=== PATIENT | female | born 1990 | race Caucasian/White ===

== ENCOUNTER 2018-08-12 22:34 | Emergency (ER) | payer BC, SELFPAY ==
[2018-08-12 22:35] VITALS: BP 142/80; PULSE 78; RESP 15; TEMP 36.6; BMI 23.0
--- NOTE | 2018-08-12 23:59 | ED.VIS.GEN ---
History of Present Illness Chief Complaint: Headache Narrative: Stated this evening around 5 PM she took her kids to the park. They were playing and she developed a headache. She stated that it got worse throughout the next couple hours. It is an aching pain. It is in her neck and diffuse head. She feels it behind her eyes. It is a throbbing. Occasionally it will feel sharp. No visual difficulty but positive photophobia. She does have a history of migraines every 2 months for the last 3 years. She tried Excedrin and ibuprofen with minimal relief this evening. No nausea or vomiting. Denies any other symptoms. Current severity is moderate. She is never seen a neurologist. She takes no migraine medications. Past Medical History - Allergies and Home Meds Allergies/Adverse Reactions: Allergies No Known Allergies Allergy (Verified 08/12/18 22:38) Primary Care Physician: Jamie Alberts DO [Primary Care Provider] - Prior records reviewed: Yes Past Medical History: - - Migraine headache Surgical History: appendectomy Lives: Spouse/ Significant Other Smoking Status: Current every day smoker Alcohol: None Drugs: None Review of Systems General: Denies: Chills, Fever, Sweats Eyes: Denies: Visual changes - bilaterally, Diplopia ENT: Denies: Rhinorrhea, Sore throat Cardiovascular: Denies: Chest pain, Palpitations Respiratory: Denies: Dyspnea, Cough, Dyspnea on exertion Gastrointestinal: Denies: Abdominal pain, Nausea, Vomiting, Diarrhea, Melena, Hematochezia Genitourinary: Denies: Dysuria, Hematuria, Frequency Musculoskeletal: Denies: Back pain, Extremity Pain Skin: Denies: Rash, Wounds Neurological: Reports: Headache. Denies: Weakness, Numbness Physical Exam Vital Signs/Narrative: Vital Signs Temp Pulse Resp BP 08/12/18 22:35 97.9 F 78 15 142/80 H General: Well nourished, Well developed, No Acute Distress Head: Normocephalic, Atraumatic Eyes: Perrl, EOMI ENT: Moist mucous membranes, No rhinorrhea Neck: Supple, Nontender Cardiovascular: Regular rate, Regular rhythm, No murmurs Respiratory: No distress, CTA bilaterally, Chest nontender Abdomen: Soft, Nontender, Nondistended, Normal bowel sounds Back: Nontender, Normal Inspection Extremities: Nontender, No edema Skin: Normal color, No rash Neurological: Alert, Oriented x3, Cranial nerves II-XII grossly intact, Normal Strength, Normal Sensation Psychological: Normal affect, Normal Mood Diagnostic/Tx/Re-eval - Medical Decision Making IV established and given IV fluids, Benadryl on reevaluation 1 hour later her headache is completely resolved. I do not think she had a subarachnoid hemorrhage. I think she likely has a migraine that is resolved. I do not think she needs imaging. She will follow-up as an outpatient. Resting comfortably nontoxic. ED Disposition - Plan for ED Patient: Diagnosis: Migraine headache Instructions: ED Headache Migraine Referrals: Jamie Alberts DO [Primary Care Provider] -
[2018-08-13] MEDS: 0.9% Normal Saline 1,000 ML 999 ML IV (00:54)
[2018-08-13] MEDS: Ketorolac 30 MG/ML Syringe IV (00:54)
[2018-08-13] MEDS: DiphenhydrAMINE 50 MG/ML Syringe 25 MG IV (00:55)
[2018-08-13] MEDS: proCHLORPERazine 10 MG/2 ML Vial IV (00:56)
[2018-08-13 00:57] VITALS: BP 136/80; PULSE 84; RESP 16; O2SAT 100
[2018-08-13 01:54] VITALS: PULSE 78; RESP 16; O2SAT 98
== END 2018-08-13 01:56 | disposition home or self-care (01) ==
PROVIDERS: Emergency Provider Emergency Medicine; Family Provider Family Medicine; PCP Family Medicine
DX: G43.909 Migraine, unspecified, not intractable, without status migrainosus (principal); F17.210 Nicotine dependence, cigarettes, uncomplicated
CPT/HCPCS: 96361; 96374; 96375; 99282; J7030; A4216

== ENCOUNTER → 2019-11-25 11:39 | Outpatient (CLI) | payer SELFPAY | PROVIDERS: PCP Family Medicine; Referring Provider Family Medicine; Visit Provider Family Medicine | DX: Z11.59 Encounter for screening for other viral diseases (principal) | CPT/HCPCS: 87635; G2023; U0003 ==

== ENCOUNTER → 2022-06-14 | Outpatient (CLI) | payer OTHER, SELFPAY ==
[2022-06-16 21:07] LABS: Chlamydia By Nucleic Acid AMP Negative (Negative)
[2022-06-18 14:13] LABS: Gonococcus By Nucleic Acid AMP Negative (Negative)
[2022-06-20 10:08] LABS: HPV APTIMA, High Risk Negative (Negative)
== END | disposition home or self-care (01) ==
LOC: LABSPEC 13:24
PROVIDERS: PCP Family Medicine; Visit Provider Nurse Practitioner Women's Health
DX: Z12.4 Encounter for screening for malignant neoplasm of cervix (principal); Z11.3 Encounter for screening for infections with a predominantly sexual mode of transmission; N89.8 Other specified noninflammatory disorders of vagina
CPT/HCPCS: 87070; 87205; 87491; 87591; 87624; 88175; G0145

== ENCOUNTER → 2022-07-01 | Outpatient (CLI) | payer OTHER, SELFPAY | END | disposition home or self-care (01) | PROVIDERS: PCP Family Medicine; Visit Provider Obstetrics & Gynecology | DX: R14.0 Abdominal distension (gaseous) (principal) | CPT/HCPCS: 87070; 87205 ==

== ENCOUNTER → 2022-07-16 | Outpatient (CLI) | payer OTHER, SELFPAY ==
--- NOTE | 2022-07-16 10:16 | US_ITS ---
INDICATION: BLOATING EXAMINATION: Ultrasound US Pelvis Non OB Complete With Transvaginal Imaging TECHNIQUE: Transabdominal and transvaginal pelvic ultrasound was performed. Grayscale, spectral waveform, and color flow Doppler evaluation of the adnexa. COMPARISON: None. FINDINGS: UTERUS: Anteverted. The uterus measures 9.5 x 5.0 x 4.7 cm.. There is a normal variant nabothian cyst. This measures 0.2 x 0.4 x 0.3 cm. There is a submucosal cyst seen on the right within the body/fundus measuring 0.4 cm in diameter. The endometrial stripe measures 0.6 cm in AP diameter which is within normal limits. RIGHT OVARY: 2.4 x 1.5 x 1.3 cm. Non-enlarged, normal echogenicity. There is normal arterial inflow and venous outflow present in the right ovary. LEFT OVARY: 3.3 x 2.6 x 1.6 cm. There is a 1.7 x 1.6 x 1.3 cm simple cyst in the left ovary.. Non-enlarged, normal echogenicity. There is normal arterial inflow and venous outflow present in the left ovary. FREE FLUID: None. US/Pelvic (Non ) IMPRESSION: Submucosal cyst within the body/fundus measuring 0.4 cm in diameter. Normal variant nabothian cyst at the cervix. 1.7 x 1.6 x 1.3 cm simple cyst left ovary. Electronically Signed: Jamie Mcgee MD, ANDREA at 11:33 EST ,
== END | disposition home or self-care (01) ==
LOC: US 10:15
PROVIDERS: PCP Family Medicine; Referring Provider Obstetrics & Gynecology; Visit Provider Obstetrics & Gynecology
DX: R14.0 Abdominal distension (gaseous) (principal)
CPT/HCPCS: 76830; 76856

== ENCOUNTER → 2023-07-11 | Outpatient (CLI) | payer OTHER, SELFPAY ==
[2023-07-11 18:03] LABS: Absolute Lymphocyte Count 3.17 X10^3/uL (0.83-4.51); Absolute Neutrophil Count 3.8 X10^3/uL (2.0-7.7); Basophil# 0.03 X10^3/uL; Basophil% 0.4 % (0-1); Eosinophil# 0.16 X10^3/uL; Eosinophils% 2.2 % (0-5); Hematocrit 41.7 % (37-47); Hemoglobin 13.9 g/dL (12.0-15.0); Lymphocyte # 3.17 X10^3/ul (0.83-4.51); Lymphocyte % 43.1 % (19-41); Mean Corp Hgb Conc 33.3 g/dL (32-36); Mean Corpuscular Hgb 30.2 pg (27.0-32.0); Mean Corpuscular Volume 90.7 fL (81-99); Mean Platelet Vol. 9.5 fl (6.2-12.0); Monocyte# 0.19 X10^3/uL; Monocyte% 2.6 % (0-10); NRBC Flagged by Analyzer 0 % (0-5); Neutrophil % 51.6 % (47-70); Platelet Count 298 K/mm3 (150-450); RBC Distribution Width CV 12.6 % (11.6-14.6); RBC Distribution Width SD 41.5 fl (35.1-43.9); White Blood Count 7.4 K/mm3 (4.4-11.0)
[2023-07-11 18:53] LABS: ALB/GLOB Ratio 1.3 RATIO (0.9-2.4); AST(SGOT) 17 U/L (15-37); Alanine Aminotransfer ALT/SGPT 35 U/L (13-56); Alkaline Phosphatase 81 U/L (45-117); Anion Gap 7 (5-15); BUN 13 mg/dL (7-18); Calcium,Total 9.2 mg/dL (8.5-10.1); Chloride 105 mmol/L (98-107); Creatinine, Serum 0.65 mg/dL (0.55-1.02); EST Glomerular Filtration Rate 112 mL/min (>60); Est Glom Filt Rate - Afr Amer 135 mL/min (>60); Ferritin 20 ng/mL (8-252); Glucose 81 mg/dL (74-106); Iron 60 ug/dL (50-170); Potassium 3.6 mmol/L (3.5-5.1); Sodium Level 138 mmol/L (136-145); T4 Free Direct 0.82 ng/dL (0.76-1.46); Thyroid Stim Hormone (TSH) 1.82 uIU/mL (0.358-3.74)
[2023-07-11 19:10] LABS: HIV - WCH Non-Reactive (Nonreactive); Syphilis Antibodies Non-reactive; Vitamin B12 702 pg/mL (211-911); Vitamin D,25 Hydroxy 27.4 ng/mL
== END | disposition home or self-care (01) ==
LOC: BFHLAB 15:43
PROVIDERS: PCP Nurse Practitioner Family; Visit Provider Nurse Practitioner Family
DX: R53.83 Other fatigue (principal); Z20.9 Contact with and (suspected) exposure to unspecified communicable disease
CPT/HCPCS: 36415; 80053; 82306; 82607; 82728; 83540; 84439; 84443; 85025; 86703; 86780; 87491; 87591

== ENCOUNTER → 2025-02-11 | Outpatient (CLI) | payer OTHER, SELFPAY | END | disposition home or self-care (01) | LOC: LABSPEC 16:00 | PROVIDERS: PCP Nurse Practitioner Family; Visit Provider Nurse Practitioner Women's Health | DX: N89.8 Other specified noninflammatory disorders of vagina (principal) | CPT/HCPCS: 87070; 87077; 87186; 87205 ==

== ENCOUNTER 2025-04-14 07:37 | Day surgery (SDC) | payer OTHER, SELFPAY ==
[2025-04-14] VITALS (9 sets, daily range): BP systolic 96–124; BP diastolic 62–81; PULSE 63–83; RESP 14–18; TEMP 36.1–37.2; O2SAT 97–100; BMI 28.3
--- NOTE | 2025-04-14 08:00 | PCM.HP.STD ---
[facility] - General General Date of Admission: 04/14/25 Date of Service: 04/14/25 Chief Complaint: Abdominal pain and diarrhea [facility] Narrative JENNY FULLER, is a 34 F who presents [ Chief Complaint: GI symptoms Patient with intermittent GI symptoms over the last 10 years. In the past she was told she had irritable bowel syndrome. Patient has flares of daily diarrhea that can last months. Most recently she was having diarrhea up to 5 times per day. This was not always related to oral intake. She has trialed a fiber supplement and daily yogurt which has resolved her symptoms. She is worried that the fiber and yogurt may stop working eventually. Patient also has daily heartburn and nausea which is when she eats and on an empty stomach. In the past she has taken omeprazole just as needed and never for a prolonged amount of time. She feels her diet may contribute to some of her symptoms as she eats mostly processed foods. She has never had an EGD or colonoscopy. She denies family history of colon cancer or inflammatory bowel disease. [facility] Medical History Wears contact lenses Wears glasses History of IBS Smoker Neck pain Sore throat Irritable bowel Depression Anxiety Home Medications ?Medication ?Instructions ?Recorded ?Last Taken ?Type paroxetine HCl 20 mg tablet 20 mg PO DAILY 05/17/23 Unknown History buspirone 5 mg tablet 5 mg PO QDAY PRN anxiety 03/07/25 Unknown History cholecalciferol (vitamin D3) 50 50 mcg PO QDAY 03/07/25 Unknown History mcg (2,000 unit) capsule multivitamin 1 tab PO QAM 03/07/25 Unknown History omeprazole 20 mg tablet,delayed 20 mg PO QDAY PRN reflux 03/07/25 Unknown History release amoxicillin 875 mg tablet 875 mg PO BID #20 tabs 04/09/25 Unknown Rx vitamin A-vit C-vit E-zinc-Cu tab 04/10/25 Unknown History tablet Allergy/AdvReac Type Severity Reaction Status Date / Time No Known Allergies Allergy Verified 04/14/25 08:01 Family History Grandfather Mental disorder Psychiatric care CVA (cerebral vascular accident) Mother Mental disorder Psychiatric care Maternal Grandmother Cancer skin Thyroid disorder Surgical History S/P appendectomy Social History household members: spouse and children housing: apartment number of children: 2 current occupational status: employed current occupation: [employer] Smoking Status: Current every day smoker alcohol intake: current alcohol intake frequency: a few times a month substance use type: does not use seatbelt use: always do you feel safe at home: Yes additional social history: - Mc ROS Constitutional Constitutional: Denies fatigue, fever(s), poor appetite, weight gain or weight loss Gastrointestinal Gastrointestinal: Denies belching, bloating, change in bowel habits, change in stool character, chewing difficulty, coffee ground emesis, constipation, cramping, diarrhea, dyspepsia, dysphagia, early satiety, excessive flatus, fecal incontinence, heartburn, hematemesis, hematochezia, hemorrhoids, loose stools, melena, nausea, odynophagia, rectal bleeding, tenesmus, vomiting or weight changes Physical Exam Const alert, oriented x3, no apparent distress and healthy appearing General Appearance: cooperative GI normal to inspection, nondistended, normoactive bowel sounds, soft to palpation, non-tender and non-distended Percussion: normal to percussion Rectal Exam: deferred Assessment & Plan Assessment/Plan (1) Loose stools: (2) Nausea: (3) Heartburn: (4) Bloating: (5) Irritable bowel: PLAN: Assessment and Plan Assessment and Plan (1) Irritable bowel: Status: Acute Comment: GI referral (2) Heartburn: Status: Acute (3) Nausea: Status: Acute (4) Loose stools: Status: Acute Plan: Jenny is a 34-year-old female patient with history of nausea, heartburn, and loose stool here for evaluation. Patient was diagnosed with IBS in the past and has intermittent GI symptoms. Patient will have loose stool for few months at a time which eventually resolves but then comes back. In the past she has tried fiber and daily yogurt. She has never had colonoscopy or further workup into the symptoms. Patient also having daily heartburn and nausea. She has trialed omeprazole as needed which has been helpful. Recommended taking omeprazole 20 mg daily 30 minutes prior to a meal. She should also continue her fiber supplement. She will be scheduled for EGD and colonoscopy for evaluation of her GI tract. Pending results will consider further treatment or workup. If colonoscopy is negative for inflammation we will presume IBS?D and consider Xifaxan. - Colonoscopy - EGD - Continue fiber - Take omeprazole 20 mg daily - Consider Xifaxan Note: [employer] speech recognition group manager software was used to create portions of this document. Sound-alike and misspelled words, as well as other group manager errors may be contained in the documentation. ]
[2025-04-14] MEDS: Lactated Ringers 1,000 ML 15 ML IV (08:09)
[2025-04-14 08:11] LABS: Internal QC Validated? YES +Cl - CLEAR BKGD; Pregnancy, Urine Negative Negative; Record Kit Lot#,Urine Preg 980607
--- NOTE | 2025-04-14 08:12 | PRE.ANES_ITS ---
ASA Classification* ASA Classification ASA Classification: 2 (GERD) Assessment & Plan Anesthesia* Anesthesia Assessment Anesthesia Assessment: Discussed sedation and/or anesthesia options, risks, benefits, and alternatives with patient/parents/legal guardian/POA. Questions invited. The patient/parents/legal guardian/POA seems to understand and agrees to proceed with anesthesia plan. Reviewed the physical assessment, medical history, allergy history and patient home medications list prior to surgery/procedure/anesthetic and documented any changes. Performed airway and anesthesia risk assessments. Anesthesia Type Anesthesia Type: MAC History Source History Obtained from:: Patient and Chart Anesthesia Focused Assessment* Temperature: 97.9 F Pulse Rate: 83 Blood Pressure: 124/81 Respiratory Rate: 16 Pulse Ox: 97 Oxygen Delivery Method: Room Air Airway Assessment Mouth opens: >3 cm Mallampati Score: II Teeth Condition: Intact Neck Range of motion (ROM): Full ROM Labs Anesthesia Preop lab: CBC WBC, (4.4-11.0) 7.4 K/mm3 07/11/23, 15:44 RBC, (4.2-5.4) 4.60 M/mm3 07/11/23, 15:44 Hgb, (12.0-15.0) 13.9 g/dL 07/11/23, 15:44 Hct, (37-47) 41.7 % 07/11/23, 15:44 Plt Count, (150-450) 298 K/mm3 07/11/23, 15:44 CHEMISTRY Potassium, (3.5-5.1) 3.6 mmol/L 07/11/23, 15:44 Sodium, (136-145) 138 mmol/L 07/11/23, 15:44 BUN, (7-18) 13 mg/dL 07/11/23, 15:44 Creatinine, (0.55-1.02) 0.65 mg/dL 07/11/23, 15:44 Glucose, (74-106) 81 mg/dL 07/11/23, 15:44 TSH, (0.358-3.74) 1.82 uIU/mL 07/11/23, 15:44 COAG Urine Test Negative Negative Today, 07:50 Pre-Assessment Diagnosis/Proposed Procedure Planned Operative Procedure(s): Colonoscopy,EGD Anesthesia History 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 When Was Last Pacemaker Check QUESTION #4 FULL TEXT: You/Your Family Experience fever (hyperthermia) with Anesthesia Last Oral Intake Last Oral intake: Last Oral Intake NPO since 05:30 04/14/25 08:03 Meds taken in AM with sips of water? 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 Yes 04/10/25 10:34 HX of Motion Sickness Yes 04/10/25 10:34 HX of N/V After Surgery No 04/10/25 10:34 Non-Smoker No 04/10/25 10:34 Duration of Surgery greater No 04/10/25 10:34 than 60 minutes Number of Risk Factors 2 04/10/25 10:34 PONV Score Moderate Risk 04/10/25 10:34 Height & Weight Height & Weight: Anesthesia: Height & Weight Height 5 ft 3 in 04/14/25 08:03 Weight: 72.575 kg 04/14/25 08:03 Body Mass Index (BMI) 28.3 04/14/25 08:03 Respiratory Assessment Respiratory Assessment - elementary teacher: Respiratory Tract Infection Hx - elementary teacher Hx Respiratory Tract Infection No 04/10/25 10:34 STOP Sleep Apnea STOP Sleep Apnea - elementary teacher: STOP Sleep Apnea - elementary teacher Hx Hypertension No 04/10/25 10:34 Hx Sleep Apnea No 04/10/25 10:34 CPAP BIPAP Do you snore loudly (louder No 04/10/25 10:34 than talking or can be heard Do you often feel tired/ No 04/10/25 10:34 fatigued/ sleepy during daytime? Has anyone observed you stop No 04/10/25 10:34 breathing during sleep? STOP Results Negative 04/10/25 10:34 QUESTION #5 FULL TEXT : Do you snore loudly (louder than talking or can be heard through closed doors)? 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 Specify any problems Hx of Preganancy in last 3 No 04/10/25 10:34 Months Nurse Filling Out Transfusion JZOLLINGE 04/10/25 10:34 & Questions: Date: 04/10/25 04/10/25 10:34 Time: 10:35 04/10/25 10:34 Patient unable to answer at this time (ie. confused, unrespo /Reproduction History /Reproductive History - elementary teacher: /Reproductive Hx- elementary teacher Hx Now No 04/10/25 10:34 Gestational Age (in weeks): EDC: Hx Hx Para Hx Section SAB No 04/10/25 10:34 Does the father of the baby or his family experience fever w Father of the baby Malignant Hypertension history comment Active Medications Active Medications: Current Medications Generic Name Dose Route Start Last Admin Trade Name Freq PRN Reason Stop Dose Admin Lactated Ringer's 1,000 mls @ 15 mls/hr 04/14/25 08:00 04/14/25 08:09 IV 15 mls/hr .Q48H POOJA Administration PFSH Medical History Wears contact lenses Wears glasses History of IBS Smoker Neck pain Sore throat Irritable bowel Depression Anxiety Home Medications ?Medication ?Instructions ?Recorded ?Last Taken ?Type paroxetine HCl 20 mg tablet 20 mg PO DAILY 05/17/23 Un known History buspirone 5 mg tablet 5 mg PO QDAY PRN anxiety Unknown History cholecalciferol (vitamin D3) 50 50 mcg PO QDAY 5 Unknown History mcg (2,000 unit) capsule multivitamin 1 tab PO QAM 03/07/25 Unknow n History omeprazole 20 mg tablet,delayed 20 mg PO QDAY PRN refl ux 03/07/25 Unknown History release amoxicillin 875 mg tablet 875 mg PO BID #20 tabs 04/09 Unknown Rx vitamin A-vit C-vit E-zinc-Cu tab 04/10/25 Unknown His tory tablet Allergy/AdvReac Type Severity Reaction Status Date / Time No Known Allergies Allergy Verified 04/14/25 08:01 Family History Grandfather Mental disorder Psychiatric care CVA (cerebral vascular accident) Mother Mental disorder Psychiatric care Maternal Grandmother Cancer skin Thyroid disorder Surgical History S/P appendectomy Social History household members: spouse and children housing: apartment number of children: 2 current occupational status: employed current occupation: [employer] Smoking Status: Current every day smoker tobacco type: cigarettes alcohol intake: current alcohol intake frequency: a few times a month substance use type: does not use seatbelt use: always do you feel safe at home: Yes additional social history: - Mc Review of Systems (Anesthesia) ROS Narrative System reviewed and no additional complaints, except as documented. Physical Exam Const alert, oriented x3 and average body habitus Resp normal respiratory effort, normal air movement and clear to auscultation bilaterally Cardio regular rate, regular rhythm and no murmurs; Negative for diaphoretic
--- NOTE | 2025-04-14 08:45 | COLBX_PTH ---
PATIENT: VIRGEN FULLER LOC: EN U#:[id number] AGE/SX: 34/F ROOM: RE04/14/[address]: Dr. Billy Hall DO : 1990 BED: DIS: 04/14/2025 SPEC #: [id number] RECD: 04/14/25 10:40 STATUS: ANNIKA REMari #: [id number] ROSA: 04/14/25 08:[address]: Billy Hall DEPT: SURGICAL PATHOLOGY RECD BY: Jim López ENTERED: 04/14/25 13:49 SP TYPE: COLON BX OTHR DR: Namrata Machuca, PTA-C Tissues: A - Duodenum, NOS B - Gastric mucous membrane C - Ileum, NOS D - COLON BIOPSY Procedures: Immunohistochemical Stains Surgery Specimen Level IV HEADER OPERATION: Colonoscopy with biopsy, EGD with biopsy PRE-OP DIAGNOSIS: Loose stools, nausea, heartburn, bloating, irritable bowel TISSUE SUBMITTED: A- Duodenum biopsy, B- Gastric body biopsy, C- Terminal ileum biopsy, D- Random colon biopsy MICROSCOPIC DIAGNOSIS A. Small intestine, duodenum, biopsy: * Small bowel mucosa with mild chronic focal active inflammation with slight villous atrophy B. Stomach, body, biopsy: * Antral and oxyntic mucosa with mild chronic focal active inflammation * No morphologic evidence of Helicobacter pylori organisms is identified on H&E or immunostained sections C. Small intestine, ileum, biopsy: * Small bowel mucosa with no pathologic change D. Colon, random, biopsy: * Colonic mucosa with no pathologic change MICROSCOPIC DESCRIPTION Slides are reviewed. All matched controls reacted appropriately. These tests were developed and their performance characteristics determined by [facility]. They may not have been cleared or approved by the U.S. Food and Drug Administration. The FDA has determined that such clearance or approval is not necessary. The above immunohistochemical markers are viewed by the Pathologist. GROSS DESCRIPTION A. Received in fixative is one container labeled with the patient's name and designated Duodenum biopsy. The specimen consists of multiple irregular fragments of sanchez tissue that in aggregate measure 1 x 0.5 x 0.2 cm. The specimen is totally submitted in one cassette. B. Received in fixative is one container labeled with the patient's name and designated Gastric body biopsy. The specimen consists of two irregular fragments of sanchez tissue that measure 1 x 0.5 x 0.2 cm. The specimen is totally submitted in one cassette. C. Received in fixative is one container labeled with the patient's name and designated Terminal ileum biopsy. The specimen consists of one irregular fragment of sanchez tissue that measures 1 x 0.5 x 0.2 cm. The specimen is totally submitted in one cassette. D. Received in fixative is one container labeled with the patient's name and designated Random colon biopsy. The specimen consists of multiple irregular fragments of sanchez tissue that in aggregate measure 2 x 0.5 x 0.2 cm. The specimen is totally submitted in one cassette. Favian 04/14/2025 CPT:26301r3,96210
--- NOTE | 2025-04-14 09:52 | OP.EGD_ITS ---
Patient Name: Jenny Dimas Procedure Date: 04/14/2025 9:18 AM Date of : 1990 Age: 34 Procedure: Upper GI endoscopy Indications: Epigastric abdominal pain, Abdominal pain in the right upper quadrant, Abdominal pain in the left upper quadrant, Generalized abdominal pain, Suspected esophageal reflux, Failure to respond to medical treatment Providers: Billy Hall DO Referring MD: Lucina Johansen Medicines: Monitored Anesthesia Care Patient Profile: This is a 34 year old female. Refer to note in patient chart for documentation of history and physical. Patient has symptoms of acute abdominal cramping, chronic abdominal distention, chronic right upper quadrant abdominal pain, chronic left upper quadrant abdominal pain, chronic epigastric abdominal pain and chronic dyspepsia. Complications: No immediate complications. Procedure: Pre-Anesthesia Assessment: - Prior to the procedure, a History and Physical was performed, and patient medications and allergies were reviewed. The patient is competent. The risks and benefits of the procedure and the sedation options and risks were discussed with the patient. All questions were answered and informed consent was obtained. Patient identification and proposed procedure were verified by the physician in the pre-procedure area. Mental Status Examination: alert and oriented. Airway Examination: normal oropharyngeal airway and neck mobility. Respiratory Examination: clear to auscultation. CV Examination: normal. Prophylactic Antibiotics: The patient does not require prophylactic antibiotics. Prior Anticoagulants: The patient has taken no anticoagulant or antiplatelet agents except for NSAID medication. ASA Grade Assessment: II - A patient with mild systemic disease. After reviewing the risks and benefits, the patient was deemed in satisfactory condition to undergo the procedure. The anesthesia plan was to use monitored anesthesia care (MAC). Immediately prior to administration of medications, the patient was re-assessed for adequacy to receive sedatives. The heart rate, respiratory rate, oxygen saturations, blood pressure, adequacy of pulmonary ventilation, and response to care were monitored throughout the procedure. The physical status of the patient was re-assessed after the procedure. After obtaining informed consent, the endoscope was passed under direct vision. Throughout the procedure, the patient's blood pressure, pulse, and oxygen saturations were monitored continuously. The pediatric colonoscope was introduced through the mouth, and advanced to the fourth part of the duodenum. Small bowel enteroscopy was deemed necessary. The upper GI endoscopy was accomplished without difficulty. The patient tolerated the procedure well. Scope In: 9:26:07 AM Scope Out: 9:28:45 AM Total Procedure Duration Time 0 hours 2 minutes 38 seconds Findings: LA Grade B (one or more mucosal breaks greater than 5 mm, not extending between the tops of two mucosal folds) esophagitis with no bleeding was found 34 to 38 cm from the incisors. A small hiatal hernia was present. No gross lesions were noted in the entire examined stomach. Biopsies were taken with a cold forceps for histology. Biopsies were taken with a cold forceps for Helicobacter pylori testing. Verification of patient identification for the specimen was done. Estimated blood loss was minimal. Decreased folds were found in the entire duodenum, flattening was found in the entire duodenum, scalloped mucosa was found in the entire duodenum and thickened folds were found in the entire duodenum. Biopsies for histology were taken with a cold forceps for evaluation of celiac disease. Verification of patient identification for the specimen was done. Estimated blood loss was minimal. Impression: - LA Grade B reflux esophagitis with no bleeding. - Small hiatal hernia. - No gross lesions in the entire stomach. Biopsied. - Duodenal mucosal changes seen, diagnostic of celiac disease. Biopsied. Recommendation: - Discharge patient to home. - Resume previous diet. - Continue present medications. - Await pathology results. Billy Hall DO 04/14/2025 9:52:23 AM This report has been signed electronically. Number of Addenda: 0 Note Initiated On: 04/14/2025 9:18 AM
--- NOTE | 2025-04-14 09:52 | OP.PROVAT_ITS ---
04/14/2025 Lucina Johansen Re : Upper GI endoscopy procedure for Jenny Dimas Dear Sven This procedure was performed on Monday, April 14, 2025. My impressions and recommendations are as follows: Impressions : - LA Grade B reflux esophagitis with no bleeding. - Small hiatal hernia. - No gross lesions in the entire stomach. Biopsied. - Duodenal mucosal changes seen, diagnostic of celiac disease. Biopsied. Recommendations : - Discharge patient to home. - Resume previous diet. - Continue present medications. - Await pathology results. My findings are described in the full procedure note, which is enclosed. If I can be of further assistance, please feel free to contact me at . Sincerely, Billy Hall, 04/14/2025 9:52:23 AM This report has been signed electronically.
--- NOTE | 2025-04-14 09:56 | OP.COLON_ITS ---
Patient Name: Jenny Dimas Procedure Date: 04/14/2025 9:28 AM Date of : 1990 Age: 34 Procedure: Colonoscopy Indications: Chronic diarrhea Providers: Billy Hall DO Referring MD: Lucina Johansen Medicines: Monitored Anesthesia Care Patient Profile: This is a 34 year old female. Refer to note in patient chart for documentation of history and physical. Patient has symptoms of acute abdominal cramping, chronic abdominal distention, chronic right upper quadrant abdominal pain, chronic left upper quadrant abdominal pain, chronic epigastric abdominal pain and chronic dyspepsia. Last Colonoscopy: none. The patient's first colonoscopy is today. Complications: No immediate complications. Procedure: Pre-Anesthesia Assessment: - Prior to the procedure, a History and Physical was performed, and patient medications and allergies were reviewed. The patient is competent. The risks and benefits of the procedure and the sedation options and risks were discussed with the patient. All questions were answered and informed consent was obtained. Patient identification and proposed procedure were verified by the physician in the pre-procedure area. Mental Status Examination: alert and oriented. Airway Examination: normal oropharyngeal airway and neck mobility. Respiratory Examination: clear to auscultation. CV Examination: normal. Prophylactic Antibiotics: The patient does not require prophylactic antibiotics. Prior Anticoagulants: The patient has taken no anticoagulant or antiplatelet agents except for NSAID medication. ASA Grade Assessment: II - A patient with mild systemic disease. After reviewing the risks and benefits, the patient was deemed in satisfactory condition to undergo the procedure. The anesthesia plan was to use monitored anesthesia care (MAC). Immediately prior to administration of medications, the patient was re-assessed for adequacy to receive sedatives. The heart rate, respiratory rate, oxygen saturations, blood pressure, adequacy of pulmonary ventilation, and response to care were monitored throughout the procedure. The physical status of the patient was re-assessed after the procedure. After I obtained informed consent, the scope was passed under direct vision. Throughout the procedure, the patient's blood pressure, pulse, and oxygen saturations were monitored continuously. The pediatric colonoscope was introduced through the anus and advanced to the terminal ileum. The colonoscopy was performed without difficulty. The patient tolerated the procedure well. The quality of the bowel preparation was adequate. The terminal ileum, ileocecal valve, appendiceal orifice, and rectum were photographed. Scope In: 9:30:16 AM Scope Withdrawal Time 0 hours 8 minutes 57 seconds Scope Out: 9:43:10 AM Total Procedure Duration Time 0 hours 12 minutes 54 seconds Findings: The perianal and digital rectal examinations were normal. An area of mildly congested mucosa was found in the recto-sigmoid colon, in the sigmoid colon, at the hepatic flexure and in the ascending colon. Biopsies for histology were taken with a cold forceps from the right colon and left colon for evaluation of microscopic colitis. Verification of patient identification for the specimen was done. Estimated blood loss was minimal. A patchy area of the terminal ileum was congested. Biopsies were taken with a cold forceps for histology. Verification of patient identification for the specimen was done. Estimated blood loss was minimal. Impression: - Congested mucosa in the recto-sigmoid colon, in the sigmoid colon, at the hepatic flexure and in the ascending colon. Biopsied. - Congested mucosa in the terminal ileum. Biopsied. Recommendation: - Discharge patient to home. - Resume previous diet. - Continue present medications. - Await pathology results. - Repeat colonoscopy in 10 years for screening purposes. Procedure Code(s): --- Professional --- 68748, Colonoscopy, flexible; with biopsy, single or multiple CPT copyright 2021 [employer]. All rights reserved. The codes documented in this report are preliminary and upon website/blog editor review may be revised to meet current compliance requirements. Billy Hall DO 04/14/2025 9:55:28 AM This report has been signed electronically. Number of Addenda: 0 Note Initiated On: 04/14/2025 9:28 AM
--- NOTE | 2025-04-14 09:56 | OP.PROVAT_ITS ---
04/14/2025 Lucina Johansen Re : Colonoscopy procedure for Jenny Dimas Dear Sven This procedure was performed on Monday, April 14, 2025. My impressions and recommendations are as follows: Impressions : - Congested mucosa in the recto-sigmoid colon, in the sigmoid colon, at the hepatic flexure and in the ascending colon. Biopsied. - Congested mucosa in the terminal ileum. Biopsied. Recommendations : - Discharge patient to home. - Resume previous diet. - Continue present medications. - Await pathology results. - Repeat colonoscopy in 10 years for screening purposes. My findings are described in the full procedure note, which is enclosed. If I can be of further assistance, please feel free to contact me at . Sincerely, Billy Hall, 04/14/2025 9:55:28 AM This report has been signed electronically.
--- NOTE | 2025-04-14 09:58 | PCM.POST.ANE ---
Anesthesia: Postop Eval I Current Vital Signs Temperature: 98.9 F Pulse Rate: 64 Blood Pressure: 96/62 Respiratory Rate: 16 Pulse Ox: 99 Oxygen Delivery Method: Room Air Assessment Airway patent: Yes Spontaneous unlabored respirations: Yes Mental status: Asleep nausea: No Vomiting: No Anesthesia Complication: No Fluid Hydration Crystalloid volume administer (ml): 800 Total IV fluid infused: 800 Progress Note Anesthesia document: Postop Eval 1 completed: Yes
--- NOTE | 2025-04-14 16:38 | PCM.POSTANE2 ---
Anesthesia Postop Eval I Sum Postop Eval Completion status Anesthesia document: Postop Eval 1 completed: Yes Anesthesia Postop Eval I Summary Anesthesia Postop Eval I Summary: Anesthesia Postop Eval I: Assessment Summary Airway patent Yes 04/14/25 09:58 [email or web address] Spontaneous unlabored Yes 04/14/25 09:58 [email or web address] respirations Mental status Asleep 04/14/25 09:58 [email or web address] nausea No 04/14/25 09:58 [email or web address] Vomiting No 04/14/25 09:58 [email or web address] Anesthesia Postop Eval I: Fluid Summary Crystalloid volume administer 800 04/14/25 09:58 [email or web address] (ml) Colloids volume administered ( ml) Blood Product volume administered (ml) Total IV fluid infused 800 04/14/25 09:58 [email or web address] Anesthesia Postop Eval I: Summary Notes Anesthesia Complication No 04/14/25 09:58 [email or web address] Anesthesia Complication Comment: Post-operative progress note Anesthesia: Postop Eval II Evaluation Mental status: Awake Pain Level: 0 nausea: No Vomiting: No Complications Anesthesia Complication: No
== END 2025-04-14 10:41 | disposition home or self-care (01) ==
LOC: EN 07:38 → AC 07:40
PROVIDERS: Anesthesiology; PCP Nurse Practitioner Family; Referring Provider Nurse Practitioner Family; Visit Provider Internal Medicine Gastroenterology
PROC: 0DJD8ZZ Inspection of Lower Intestinal Tract, Via Natural or Artificial Opening Endoscopic (ICD-10-PCS; CPT 45378; principal; 2025-04-14 08:40)
DX: K29.50 Unspecified chronic gastritis without bleeding (principal); K44.9 Diaphragmatic hernia without obstruction or gangrene; K21.00 Gastro-esophageal reflux disease with esophagitis, without bleeding; Z79.899 Other long term (current) drug therapy; F17.210 Nicotine dependence, cigarettes, uncomplicated; K58.9 Irritable bowel syndrome, unspecified
CPT/HCPCS: 44361; 45380; 81025; 88305; 88342; J2405

== ENCOUNTER → 2025-04-28 | Outpatient (CLI) | payer OTHER, SELFPAY ==
[2025-04-29 15:08] LABS: Immunoglobulin A < 5 mg/dL (87-352)
== END | disposition home or self-care (01) ==
LOC: LAB 11:18
PROVIDERS: PCP Nurse Practitioner Family; Referring Provider Student in an Organized Health Care Education/Training Program; Visit Provider Student in an Organized Health Care Education/Training Program
DX: R19.5 Other fecal abnormalities (principal); R11.0 Nausea; R12 Heartburn
CPT/HCPCS: 36415; 82784; 83516; 86255